=== PATIENT | female | born 1980 | race Caucasian/White ===

== ENCOUNTER 2016-08-11 22:26 | Emergency (ER) | payer MEDICAID ==
[~2016-08-11] VITALS: Ht 160 cm; Wt 61.4 kg
[2016-08-12] MEDS ORDERED: PERTUSS(ACELL),DIPH,TET VAC/PF 0.5 ML VIAL IM ONE (00:15)
[2016-08-12 00:30] VITALS: BP 123/70
== END 2016-08-12 01:08 | disposition home or self-care (01) ==
LOC: EMS 22:27
DX: S01.01XA Laceration without foreign body of scalp, initial encounter (principal); S09.90XA Unspecified injury of head, initial encounter; W50.0XXA Accidental hit or strike by another person, initial encounter; Y93.89 Activity, other specified; Y92.89 Other specified places as the place of occurrence of the external cause; Y99.8 Other external cause status
CPT/HCPCS: 12011; 90471; 90715; 99283